=== PATIENT | male | born 1990 | race Two or more races ===

== ENCOUNTER 2022-12-10 03:56 | Emergency (ER) | payer BC | END 2022-12-10 04:31 | disposition home or self-care (01) | LOC: MW.ED 03:56 | DX: H66.92 Otitis media, unspecified, left ear (principal) | CPT/HCPCS: 99283 ==

== ENCOUNTER 2023-07-01 11:26 | Emergency (ER) | payer BC | END 2023-07-01 13:22 | disposition home or self-care (01) | LOC: MW.ED 11:26 | DX: M67.843 Other specified disorders of tendon, right hand (principal); Z86.16 Personal history of COVID-19; Z79.899 Other long term (current) drug therapy | CPT/HCPCS: 73130-26-RT; 73130-RT; 99283 ==

== ENCOUNTER 2023-07-01 16:30 | Emergency (ER) | payer BC ==
[2023-07-01] MEDS ORDERED: Diphtheria,Pertussis(Acell),Tetanus Vaccine 0.5 ML Syringe IM ONE (16:41)
== END 2023-07-01 17:47 | disposition home or self-care (01) ==
LOC: MW.ED 16:30
DX: S61.431A Puncture wound without foreign body of right hand, initial encounter (principal); Z23 Encounter for immunization
CPT/HCPCS: 90471; 90715; 99282-25; 99283

== ENCOUNTER 2023-12-18 14:43 | Emergency (ER) | payer BC | END 2023-12-18 15:31 | disposition home or self-care (01) | LOC: MW.ED 14:43 | DX: R10.12 Left upper quadrant pain (principal); Z86.16 Personal history of COVID-19 | CPT/HCPCS: 99282; 99283 ==